=== PATIENT | female | born 1935 | race Caucasian/White ===

== ENCOUNTER 2020-06-07 15:08 | Inpatient (IN) | payer MEDICARE, BC ==
[~2020-06-07] VITALS: Ht 160 cm; Wt 40.8 kg
[2020-06-07 17:37] LABS: HEMOGLOBIN 13.5 gm/dl (12.3-15.3); RED BLOOD COUNT 4.34 M/UL (4.00-5.10)
[2020-06-07 17:59] LABS: BUN/CREATININE RATIO 54 (0-10)
--- NOTE | 2020-06-09 10:39 | NUR ---
AFTER ELISABETH SEEN PATIENT WAS INFORMED TO OK TO CHANGE DIET
[2020-06-11 05:03] LABS: RED BLOOD COUNT 3.52 M/UL (4.00-5.10); WHITE BLOOD COUNT 5.2 K/UL (4.5-11.0)
[2020-06-11 05:10] LABS: HEMOGLOBIN 10.7 gm/dl (12.3-15.3)
[2020-06-11 05:28] LABS: BUN/CREATININE RATIO 41 (0-10)
[2020-06-12 03:02] LABS: HEMOGLOBIN 10.9 gm/dl (12.3-15.3); RED BLOOD COUNT 3.51 M/UL (4.00-5.10); WHITE BLOOD COUNT 4.9 K/UL (4.5-11.0)
[2020-06-12 03:27] LABS: BUN/CREATININE RATIO 34 (0-10)
[2020-06-13 08:22] LABS: HEMOGLOBIN 11.2 gm/dl (12.3-15.3); RED BLOOD COUNT 3.63 M/UL (4.00-5.10); WHITE BLOOD COUNT 4.5 K/UL (4.5-11.0)
[2020-06-13 08:38] LABS: BUN/CREATININE RATIO 27 (0-10)
[2020-06-13] MEDS ORDERED: LEVOFLOXACIN500 MG PO (11:47)
[2020-06-13] MEDS ORDERED: ELIQUIS 2.5 MG2.5 MG PO (11:47)
[2020-06-13] MEDS ORDERED: PROTONIX 40 MG40 M1 PO (11:47)
== END 2020-06-13 17:45 | DRG 884 ==
LOC: ER1 15:08 → M/S 23:22 → CDU 23:22 → M/S 06-08 12:00
PROVIDERS: Family Medicine; Internal Medicine; ADMIT Internal Medicine
PROC: 3E0234Z Introduction of Serum, Toxoid and Vaccine into Muscle, Percutaneous Approach (ICD-10-PCS; principal; 2020-06-08)
DX: F03.90 Unspecified dementia, unspecified severity, without behavioral disturbance, psychotic disturbance, mood disturbance, and anxiety (principal); E43 Unspecified severe protein-calorie malnutrition; Z68.1 Body mass index [BMI] 19.9 or less, adult; N39.0 Urinary tract infection, site not specified; E87.2 Acidosis; E86.0 Dehydration; I48.91 Unspecified atrial fibrillation; Z20.822 Contact with and (suspected) exposure to COVID-19; R74.02 Elevation of levels of lactic acid dehydrogenase [LDH]; N18.30 Chronic kidney disease, stage 3 unspecified; L89.152 Pressure ulcer of sacral region, stage 2; R39.2 Extrarenal uremia; R53.81 Other malaise; Z23 Encounter for immunization
CPT/HCPCS: ECHO; 0241U; 36415; 36600; 70450; 71045; 80048; 80053; 80307; 81001; 82140; 82550; 82553; 82803; 83605; 83735; 83874; 84439; 84443; 84484; 85025; 85610; 87040; 90686; 92526; 92610; 93005; 93306; 97110; 97110-GP-CQ; 97162; 97166; 97530; 97530-GP-CQ; 99285; A6212; G0008; J1650; J7030; U0002

== ENCOUNTER 2020-06-23 03:14 | Inpatient (IN) | payer MEDICARE, BC ==
[~2020-06-23] VITALS: Ht 167.6 cm; Wt 53.1 kg
[~2020-06-23 03:14] MED LIST: ELIQUIS 2.5 MG2.5 MG PO; LEVOFLOXACIN500 MG PO; PROTONIX 40 MG40 M1 PO
[2020-06-23 03:35] LABS: HEMOGLOBIN 10.2 gm/dl (12.3-15.3); RED BLOOD COUNT 3.22 M/UL (4.00-5.10); WHITE BLOOD COUNT 6.9 K/UL (4.5-11.0)
[2020-06-23 03:56] LABS: BUN/CREATININE RATIO 23 (0-10)
[2020-06-23] MEDS ORDERED: MULTI-VITAMIN1 EACH PO (12:11)
[2020-06-23] MEDS ORDERED: CYPROHEPTADINE H4 MG PO (12:15)
[2020-06-23] MEDS ORDERED: ACETAMINOPHEN325 MG PO (12:18)
[2020-06-24 02:21] LABS: HEMOGLOBIN 9.4 gm/dl (12.3-15.3); RED BLOOD COUNT 3.01 M/UL (4.00-5.10)
[2020-06-24 02:22] LABS: WHITE BLOOD COUNT 4.2 K/UL (4.5-11.0)
[2020-06-25 03:28] LABS: BUN/CREATININE RATIO 34 (0-10)
[2020-06-25] MEDS ORDERED: FEOSOL325 MG PO (11:04)
[2020-06-25] MEDS ORDERED: DIGOXIN125 MCG PO (11:04)
[2020-06-25] MEDS ORDERED: LOPRESSOR 25 MG25 MG PO (11:04)
== END 2020-06-25 13:03 | DRG 310 ==
LOC: ER1 03:14 → PROG CARE 05:23 → CDU 05:23 → PROG CARE 09:26
PROVIDERS: Emergency Medicine; Internal Medicine; Internal Medicine Infectious Disease; ADMIT Internal Medicine
DX: I48.0 Paroxysmal atrial fibrillation (principal); D50.9 Iron deficiency anemia, unspecified; E87.6 Hypokalemia; G30.1 Alzheimer's disease with late onset; F02.80 Dementia in other diseases classified elsewhere, unspecified severity, without behavioral disturbance, psychotic disturbance, mood disturbance, and anxiety; K21.9 Gastro-esophageal reflux disease without esophagitis; Z74.01 Bed confinement status; Z79.899 Other long term (current) drug therapy; K08.89 Other specified disorders of teeth and supporting structures; R62.7 Adult failure to thrive; R13.12 Dysphagia, oropharyngeal phase; R54 Age-related physical debility; Z79.01 Long term (current) use of anticoagulants; L89.312 Pressure ulcer of right buttock, stage 2; L89.152 Pressure ulcer of sacral region, stage 2; L89.620 Pressure ulcer of left heel, unstageable; L89.610 Pressure ulcer of right heel, unstageable
CPT/HCPCS: 36415; 70450; 71045; 80048; 80053; 82550; 82553; 82607; 82728; 82746; 83540; 83550; 83605; 83690; 83735; 84443; 84484; 85025; 85610; 85730; 87040; 93005; 99285; A6212; J1160; J3475; U0002